=== PATIENT | female | born 1950 | race Caucasian/White ===

== ENCOUNTER 2017-11-26 05:46 | Inpatient (IN) ==
[2017-11-19 12:36] LABS: Basophils # 0.1 10*3/uL (0.0-0.2); Basophils % 0.8 % (0.0-0.8); Eosinophils # 0.1 10*3/uL (0.0-0.87); Eosinophils % 1.6 % (0.00-10.9); Hematocrit 38.5 VOL% (35.7-47.0); Hemoglobin 12.4 GM/DL (12.0-16.0); Immature Granulocytes % 0.2 %; Immature Granulocytes Absolute 0.01 #; Lymphocytes # 1.6 10*3/uL (1.4-4.0); Mean Corpuscular HGB Conc 32.2 GM/DL (32-36); Mean Corpuscular Hemoglobin 32 PG (27-34); Monocytes # 0.6 10*3/uL (0.11-0.8); Monocytes % 9.5 % (1.7-12.7); Neutrophils # 3.9 10*3/uL (1.4-7.4); Neutrophils % 62.9 % (38.7-73.9); Platelet Count 241 T/CUMM (130-400); Red Blood Count 3.93 MC/CUMM (3.8-5.5); Red Cell Distribution Width 13.2 % (9.3-17.3); White Blood Count 6.2 T/CUMM (4-12)
[2017-11-19 12:38] LABS: Apearance,Urine CLEAR (Clear); Bilirubin,Urine Negative (Negative); Blood, Urine Negative (Negative); Glucose,Urine (UA) Negative (Negative); Ketones,Urine Negative (Negative); Mucus,Urine Occasional /LPF (Occasional); Nitrite,Urine Negative (Negative); Protein,Urine Negative; RBC,Urine 3 /HPF (0-4); Squamous Epithelial Cell,Urine Occasional /HPF (0-10); Urine Color Yellow (Yellow); Urine Specific Gravity 1.008 (1.001-1.035); Urine Urobilinogen < 2.0 EU/DL (0.2-1.0); WBC,Urine <1 /HPF (0-6)
[2017-11-19 13:02] LABS: Albumin 4.2 G/DL (3.4-5.0); Bilirubin,Total 0.7 MG/DL (0.2-1.0); Calcium 8.8 MG/DL (8.5-10.1); Osmolality,Calculated 274.5 MOS/KG (273-304); Potassium 3.7 MMOL/L (3.5-5.1); Total Protein 7.9 G/DL (6.4-8.3)
[2017-11-19 14:01] LABS: INR 0.9; Partial Thromboplastin Time 28.2 SECS (0-40)
[2017-11-26] MEDS ORDERED: VANCOMYCIN INJ 1,000 MG in SODIUM CHLORIDE 0.9% 250 ML IV ONE (06:00)
[2017-11-26] MEDS ORDERED: CLINDAMYCIN INJ 900 MG in PREMIX 1 EACH IV ONE (06:00)
[2017-11-26] MEDS ORDERED: LACTATED RINGERS 1,000 ML IV SCH (08:00)
[2017-11-26] MEDS ORDERED: ALBUTEROL/IPRATROPIUM 3 ML NEB RESP TX ONE (08:00)
[2017-11-26] MEDS ORDERED: FAMOTIDINE 20 MG TABLET PO ONE (08:00)
[2017-11-26] MEDS ORDERED: DIAZEPAM 5 MG TABLET PO ONE (08:00)
[2017-11-26] MEDS ORDERED: FAMOTIDINE 20 MG TABLET ONE (08:53)
[2017-11-26] MEDS ORDERED: CLINDAMYCIN INJ 50 ML IV ONE (08:53)
[2017-11-26] MEDS ORDERED: DIAZEPAM 5 MG TABLET ONE (08:53)
[2017-11-26] MEDS ORDERED: TRANEXAMIC ACID 1,000 MG/10 ML VIAL ONE (09:10)
[2017-11-26] MEDS ORDERED: BACITRACIN OINT 0.9 GM PACK TOP ONE (09:10)
[2017-11-26] MEDS ORDERED: VANCOMYCIN 1,000 MG VIAL ONE (09:39)
[2017-11-26] MEDS ORDERED: MORPHINE 4 MG/1 ML VIAL IV PRN ×2 (11:08)
[2017-11-26] MEDS ORDERED: ONDANSETRON 4 MG/2 ML VIAL IV PRN (11:08)
[2017-11-26] MEDS ORDERED: diphenhydrAMINE CAP 25 MG CAPSULE PO PRN (11:08)
[2017-11-26] MEDS ORDERED: oxyCODONE IR 5 MG TABLET PO PRN ×2 (11:08)
[2017-11-26] MEDS ORDERED: ZALEPLON 5 MG CAPSULE PO PRN (11:08)
[2017-11-26] MEDS ORDERED: ROPIVACAINE 0.5% 30 ML VIAL ONE (11:19)
[2017-11-26] MEDS ORDERED: MIDAZOLAM 2 MG/2 ML VIAL ONE (11:50)
[2017-11-26] MEDS ORDERED: PROPOFOL 500 MG/50 ML BOTTLE IV ONE (11:50)
[2017-11-26] MEDS ORDERED: BUPIVACAINE SPINAL 0.75% 2 ML AMP SPINAL ONE (11:50)
[2017-11-26] MEDS ORDERED: PHENYLEPHRINE 1 MG/10 ML SYRINGE IV ONE (11:50)
[2017-11-26] MEDS ORDERED: PROPOFOL 200 MG/20 ML VIAL IV ONE (11:50)
[2017-11-26] MEDS ORDERED: MEPERIDINE 25 MG/1 ML VIAL ONE (11:55)
[2017-11-26] MEDS ORDERED: MEPERIDINE 25 MG/1 ML VIAL IV PRN (11:55)
[2017-11-26] MEDS: KETOROLAC 30 MG/1 ML VIAL IV SCH ×2 (15:06→18:19)
[2017-11-26] MEDS: ACETAMINOPHEN 500 MG TABLET PO SCH ×2 (15:06→22:03)
[2017-11-26] MEDS: LACTATED RINGERS 1,000 ML IV SCH ×2 (15:06→23:22)
[2017-11-26] MEDS: CLINDAMYCIN INJ 900 MG in PREMIX 1 EACH IV SCH (18:19)
[2017-11-26] MEDS: DOCUSATE SODIUM 100 MG CAPSULE PO SCH (22:03)
[2017-11-27] MEDS: CLINDAMYCIN INJ 900 MG in PREMIX 1 EACH IV SCH ×2 (02:49→04:46)
[2017-11-27] MEDS: ACETAMINOPHEN 500 MG TABLET PO SCH ×2 (02:49→09:45)
[2017-11-27] MEDS: KETOROLAC 30 MG/1 ML VIAL IV SCH ×2 (02:50→09:44)
[2017-11-27] MEDS ORDERED: CLINDAMYCIN INJ 900 MG in PREMIX 1 EACH IV SCH (03:00)
[2017-11-27] MEDS: LACTATED RINGERS 1,000 ML IV SCH (04:46)
[2017-11-27] MEDS ORDERED: FONDAPARINUX 2.5 MG/0.5 ML SYRINGE SUBCUT SCH (06:00)
[2017-11-27 06:47] LABS: Basophils % 0.6 % (0.0-0.8); Eosinophils # 0.1 10*3/uL (0.0-0.87); Eosinophils % 1.2 % (0.00-10.9); Hemoglobin 10.2 GM/DL (12.0-16.0); Immature Granulocytes % 0.3 %; Immature Granulocytes Absolute 0.02 #; Lymphocytes # 1.1 10*3/uL (1.4-4.0); Lymphocytes % 15.6 % (21.3-54.2); Mean Corpuscular HGB Conc 32.9 GM/DL (32-36); Mean Corpuscular Hemoglobin 32 PG (27-34); Mean Platelet Volume 10.2 FL (9.6-12.0); Monocytes # 0.9 10*3/uL (0.11-0.8); Neutrophils # 4.7 10*3/uL (1.4-7.4); Neutrophils % 69.3 % (38.7-73.9); Platelet Count 181 T/CUMM (130-400); Red Blood Count 3.23 MC/CUMM (3.8-5.5); Red Cell Distribution Width 13.4 % (9.3-17.3); White Blood Count 6.8 T/CUMM (4-12)
[2017-11-27 07:25] LABS: Calcium 8.2 MG/DL (8.5-10.1); Osmolality,Calculated 273.8 MOS/KG (273-304); Potassium 4.1 MMOL/L (3.5-5.1)
[2017-11-27] MEDS: DOCUSATE SODIUM 100 MG CAPSULE PO SCH (09:45)
[2017-11-27] MEDS ORDERED: MAGNESIUM HYDROXIDE SUSP 30 ML UDCUP PO PRN (11:08)
[2017-11-27 11:09] VITALS: BP 143/58
[2017-11-27] MEDS ORDERED: CELECOXIB 200 MG CAPSULE PO SCH (17:09)
== END 2017-11-27 16:02 | disposition home health service (06) | DRG 470 ==
LOC: N.OR 05:46 → N.SDSINP 05:49 → N.3E 12:43
PROVIDERS: ADMIT Orthopaedic Surgery; ATTEND Orthopaedic Surgery

== ENCOUNTER 2020-10-24 13:46 | Inpatient (IN) ==
[2020-10-24] MEDS ORDERED: ceFAZolin 2,000 MG/50 ML DUPLEX IV ONE (13:55)
[2020-10-24] MEDS ORDERED: ONDANSETRON 4 MG/2 ML VIAL IV STA (13:55)
[2020-10-24 14:04] LABS: Basophils # 0.1 10*3/uL (0.0-0.2); Basophils % 0.6 % (0.0-0.8); Eosinophils # 0.1 10*3/uL (0.0-0.87); Hematocrit 36.1 VOL% (35.7-47.0); Hemoglobin 11.7 GM/DL (12.0-16.0); Immature Granulocytes % 0.4 %; Immature Granulocytes Absolute 0.03 #; Lymphocytes # 2.4 10*3/uL (1.4-4.0); Lymphocytes % 30.7 % (21.3-54.2); Mean Corpuscular HGB Conc 32.4 GM/DL (32-36); Mean Corpuscular Volume 96.3 FL (87-102); Mean Platelet Volume 10.1 FL (9.6-12.0); Monocytes % 7.6 % (1.7-12.7); Neutrophils % 59.7 % (38.7-73.9); Platelet Count 242 T/CUMM (130-400); Red Blood Count 3.75 MC/CUMM (3.8-5.5); Red Cell Distribution Width 13.4 % (9.3-17.3); White Blood Count 7.8 T/CUMM (4-12)
[2020-10-24 14:23] LABS: Albumin 3.9 G/DL (3.4-5.0); Bilirubin,Total 0.8 MG/DL (0.2-1.0); Calcium 8.9 MG/DL (8.5-10.1); Osmolality,Calculated 274.7 MOS/KG (273-304); Potassium 3.2 MMOL/L (3.5-5.1); Total Protein 7.1 G/DL (6.4-8.2)
[2020-10-24] MEDS ORDERED: ceFAZolin 1,000 MG VIAL ONE (14:31)
[2020-10-24] MEDS ORDERED: BACITRACIN OINT 0.9 GM PACK TOP ONE (15:25)
[2020-10-24] MEDS ORDERED: ROCURONIUM 50 MG/5 ML VIAL IV ONE (15:50)
[2020-10-24] MEDS ORDERED: LIDOCAINE 2% 5 ML VIAL ONE ×2 (15:50→17:33)
[2020-10-24] MEDS ORDERED: MIDAZOLAM 2 MG/2 ML VIAL ONE (15:50)
[2020-10-24] MEDS ORDERED: propofoL 200 MG/20 ML VIAL IV ONE (15:50)
[2020-10-24] MEDS ORDERED: fentaNYL 100 MCG/2 ML VIAL ONE (15:50)
[2020-10-24] MEDS ORDERED: DIPH/TET/ACEL PERT BOOSTER VACCINE 0.5 ML VIAL IM ONE (16:13)
[2020-10-24] MEDS ORDERED: MORPHINE 4 MG/1 ML VIAL IV PRN ×2 (16:16)
[2020-10-24] MEDS ORDERED: diphenhydrAMINE CAP 25 MG CAPSULE PO PRN (16:16)
[2020-10-24] MEDS ORDERED: ZALEPLON 5 MG CAPSULE PO PRN (16:16)
[2020-10-24] MEDS ORDERED: ONDANSETRON 4 MG/2 ML VIAL IV PRN ×2 (16:16→18:05)
[2020-10-24] MEDS ORDERED: GENTAMICIN 80 MG/2 ML VIAL ONE (16:28)
[2020-10-24] MEDS ORDERED: PHENYLEPHRINE 10 MG/1 ML VIAL IV ONE (16:52)
[2020-10-24] MEDS ORDERED: LACTATED RINGERS 1,000 ML IV ONE (17:14)
[2020-10-24] MEDS ORDERED: SEVOFLURANE 1 UNIT/15 MINUTE INH ONE (17:14)
[2020-10-24] MEDS ORDERED: GLYCOPYRROLATE 0.4 MG/2 ML VIAL ONE (17:15)
[2020-10-24] MEDS ORDERED: ROPIVACAINE 0.5% 30 ML VIAL ONE (17:33)
[2020-10-24] MEDS ORDERED: DEXAMETHASONE 4 MG/1 ML VIAL ONE (17:33)
[2020-10-24] MEDS: HYDROmorphone 2 MG/1 ML VIAL IV PRN ×4 (18:05→18:30)
[2020-10-24] MEDS ORDERED: HYDROmorphone 2 MG/1 ML VIAL ONE (18:09)
[2020-10-24] MEDS: POTASSIUM CHLORIDE INJ 40 MEQ in LACTATED RINGERS 1,000 ML IV SCH (23:06)
[2020-10-24] MEDS: DOCUSATE SODIUM 100 MG CAPSULE PO SCH (23:06)
[2020-10-24] MEDS: ceFAZolin 2,000 MG/50 ML DUPLEX IV SCH (23:16)
[2020-10-24] MEDS: KETOROLAC 15 MG/1 ML VIAL IV SCH ×2 (23:17→23:24)
[2020-10-25 04:25] LABS: Basophils % 0.2 % (0.0-0.8); Hematocrit 31.1 VOL% (35.7-47.0); Hemoglobin 10.3 GM/DL (12.0-16.0); Immature Granulocytes % 0.3 %; Immature Granulocytes Absolute 0.03 #; Lymphocytes # 0.7 10*3/uL (1.4-4.0); Lymphocytes % 5.9 % (21.3-54.2); Mean Corpuscular HGB Conc 33.1 GM/DL (32-36); Mean Corpuscular Volume 96.9 FL (87-102); Mean Platelet Volume 10.4 FL (9.6-12.0); Monocytes % 9.8 % (1.7-12.7); Neutrophils % 83.8 % (38.7-73.9); Platelet Count 179 T/CUMM (130-400); Red Blood Count 3.21 MC/CUMM (3.8-5.5); Red Cell Distribution Width 13.3 % (9.3-17.3); White Blood Count 11.2 T/CUMM (4-12)
[2020-10-25 04:47] LABS: Osmolality,Calculated 273.8 MOS/KG (273-304); Potassium 4.4 MMOL/L (3.5-5.1)
[2020-10-25] MEDS: KETOROLAC 15 MG/1 ML VIAL IV SCH ×2 (05:42→09:39)
[2020-10-25] MEDS: ceFAZolin 2,000 MG/50 ML DUPLEX IV SCH ×2 (06:21→14:21)
[2020-10-25] MEDS: POTASSIUM CHLORIDE INJ 40 MEQ in LACTATED RINGERS 1,000 ML IV SCH (07:51)
[2020-10-25] MEDS ORDERED: FONDAPARINUX 2.5 MG/0.5 ML SYRINGE SUBCUT ONE (08:00)
[2020-10-25] MEDS: DOCUSATE SODIUM 100 MG CAPSULE PO SCH ×2 (09:32→21:07)
[2020-10-25] MEDS ORDERED: FONDAPARINUX 2.5 MG/0.5 ML SYRINGE SUBCUT SCH (10:30)
[2020-10-25] MEDS: LACTATED RINGERS 1,000 ML IV SCH (14:21)
[2020-10-25] MEDS: GENTAMICIN INJ 320 MG in SODIUM CHLORIDE 0.9% 100 ML IV SCH (16:10)
[2020-10-26] MEDS: ceFAZolin 2,000 MG/50 ML DUPLEX IV SCH ×3 (00:05→15:20)
[2020-10-26] MEDS: LACTATED RINGERS 1,000 ML IV SCH ×2 (03:38→13:34)
[2020-10-26 06:04] LABS: Basophils % 0.2 % (0.0-0.8); Eosinophils % 0.4 % (0.00-10.9); Hematocrit 28.2 VOL% (35.7-47.0); Hemoglobin 8.9 GM/DL (12.0-16.0); Immature Granulocytes % 0.4 %; Immature Granulocytes Absolute 0.03 #; Lymphocytes # 1.2 10*3/uL (1.4-4.0); Lymphocytes % 13.9 % (21.3-54.2); Mean Corpuscular HGB Conc 31.6 GM/DL (32-36); Mean Corpuscular Volume 101.1 FL (87-102); Mean Platelet Volume 10.9 FL (9.6-12.0); Monocytes % 12.3 % (1.7-12.7); Neutrophils % 72.8 % (38.7-73.9); Platelet Count 160 T/CUMM (130-400); Red Blood Count 2.79 MC/CUMM (3.8-5.5); Red Cell Distribution Width 13.8 % (9.3-17.3); White Blood Count 8.5 T/CUMM (4-12)
[2020-10-26] MEDS: DOCUSATE SODIUM 100 MG CAPSULE PO SCH ×2 (09:51→21:09)
[2020-10-26] MEDS ORDERED: BACITRACIN OINT 0.9 GM PACK TOP ONE (10:07)
[2020-10-26] MEDS ORDERED: ONDANSETRON 4 MG/2 ML VIAL ONE (10:36)
[2020-10-26] MEDS ORDERED: LIDOCAINE 2% 5 ML VIAL ONE (10:36)
[2020-10-26] MEDS ORDERED: propofoL 200 MG/20 ML VIAL IV ONE (10:36)
[2020-10-26] MEDS ORDERED: fentaNYL 100 MCG/2 ML VIAL ONE (10:37)
[2020-10-26] MEDS ORDERED: MIDAZOLAM 2 MG/2 ML VIAL ONE (10:37)
[2020-10-26] MEDS: GENTAMICIN INJ 320 MG in SODIUM CHLORIDE 0.9% 100 ML IV SCH (17:08)
[2020-10-27] MEDS: ceFAZolin 2,000 MG/50 ML DUPLEX IV SCH ×4 (00:12→23:05)
[2020-10-27 06:29] LABS: Basophils % 0.3 % (0.0-0.8); Eosinophils # 0.1 10*3/uL (0.0-0.87); Eosinophils % 0.5 % (0.00-10.9); Hematocrit 23.7 VOL% (35.7-47.0); Hemoglobin 7.5 GM/DL (12.0-16.0); Immature Granulocytes % 0.4 %; Immature Granulocytes Absolute 0.04 #; Lymphocytes % 10.9 % (21.3-54.2); Mean Corpuscular HGB Conc 31.6 GM/DL (32-36); Mean Corpuscular Volume 100.9 FL (87-102); Mean Platelet Volume 10.8 FL (9.6-12.0); Monocytes % 11.3 % (1.7-12.7); Neutrophils % 76.6 % (38.7-73.9); Platelet Count 144 T/CUMM (130-400); Red Blood Count 2.35 MC/CUMM (3.8-5.5); Red Cell Distribution Width 13.5 % (9.3-17.3); White Blood Count 9.2 T/CUMM (4-12)
[2020-10-27] MEDS ORDERED: SODIUM CHLORIDE 0.9% 1,000 ML IV PRN (07:52)
[2020-10-27] MEDS: DOCUSATE SODIUM 100 MG CAPSULE PO SCH ×2 (08:54→20:45)
[2020-10-27] MEDS: FONDAPARINUX 2.5 MG/0.5 ML SYRINGE SUBCUT SCH (08:54)
[2020-10-27] MEDS: GENTAMICIN INJ 320 MG in SODIUM CHLORIDE 0.9% 100 ML IV SCH (17:01)
[2020-10-27] MEDS: LACTATED RINGERS 1,000 ML IV SCH (19:24)
[2020-10-28 05:58] LABS: Basophils % 0.3 % (0.0-0.8); Eosinophils # 0.2 10*3/uL (0.0-0.87); Eosinophils % 2.2 % (0.00-10.9); Hematocrit 24.1 VOL% (35.7-47.0); Hemoglobin 7.8 GM/DL (12.0-16.0); Immature Granulocytes % 0.4 %; Immature Granulocytes Absolute 0.03 #; Lymphocytes # 1.1 10*3/uL (1.4-4.0); Lymphocytes % 14.7 % (21.3-54.2); Mean Corpuscular HGB Conc 32.4 GM/DL (32-36); Mean Corpuscular Volume 97.6 FL (87-102); Mean Platelet Volume 10.7 FL (9.6-12.0); Monocytes % 11.6 % (1.7-12.7); Neutrophils % 70.8 % (38.7-73.9); Platelet Count 181 T/CUMM (130-400); Red Blood Count 2.47 MC/CUMM (3.8-5.5); Red Cell Distribution Width 13.2 % (9.3-17.3); White Blood Count 7.2 T/CUMM (4-12)
[2020-10-28 06:11] LABS: Calcium 8.1 MG/DL (8.5-10.1); Osmolality,Calculated 271.7 MOS/KG (273-304); Potassium 3.3 MMOL/L (3.5-5.1)
[2020-10-28] MEDS: ceFAZolin 2,000 MG/50 ML DUPLEX IV SCH ×3 (06:32→23:05)
[2020-10-28] MEDS: FONDAPARINUX 2.5 MG/0.5 ML SYRINGE SUBCUT SCH (09:37)
[2020-10-28] MEDS: MAGNESIUM HYDROXIDE SUSP 30 ML UDCUP PO PRN (09:37)
[2020-10-28] MEDS: DOCUSATE SODIUM 100 MG CAPSULE PO SCH ×2 (09:37→20:25)
[2020-10-28] MEDS: ACETAMINOPHEN 325 MG TABLET PO PRN ×2 (12:04→23:04)
[2020-10-29] MEDS: ACETAMINOPHEN 325 MG TABLET PO PRN (05:53)
[2020-10-29] MEDS: ceFAZolin 2,000 MG/50 ML DUPLEX IV SCH ×2 (07:50→15:59)
[2020-10-29] MEDS: FONDAPARINUX 2.5 MG/0.5 ML SYRINGE SUBCUT SCH (10:06)
[2020-10-29] MEDS: MAGNESIUM HYDROXIDE SUSP 30 ML UDCUP PO PRN (10:06)
[2020-10-29] MEDS: DOCUSATE SODIUM 100 MG CAPSULE PO SCH ×2 (10:06→20:39)
[2020-10-30] MEDS: MAGNESIUM HYDROXIDE SUSP 30 ML UDCUP PO PRN (03:29)
[2020-10-30] MEDS ORDERED: BISACODYL 10 MG SUPP RECTAL ONE (07:30)
[2020-10-30] MEDS: DOCUSATE SODIUM 100 MG CAPSULE PO SCH (08:44)
[2020-10-30] MEDS: FONDAPARINUX 2.5 MG/0.5 ML SYRINGE SUBCUT SCH (08:45)
[2020-10-30] MEDS ORDERED: SODIUM PHOSPHATE ENEMA 133 ML BOTTLE RECTAL ONE (10:45)
[2020-10-30 11:12] VITALS: BP 129/53
== END 2020-10-30 13:30 | disposition home health service (06) | DRG 493 ==
LOC: EDUNIT# → EDBD → N.ED 13:46 → N.EDINP 15:32 → N.3E 19:25
PROVIDERS: ADMIT Orthopaedic Surgery; ATTEND Orthopaedic Surgery